=== PATIENT | male | born 2005 | race African-American/Black ===

== ENCOUNTER 2024-04-17 09:52 | Emergency (ER) | payer OTHER ==
[~2024-04-17] VITALS: Ht 188 cm; Wt 104.3 kg
== END 2024-04-17 11:50 | disposition home or self-care (01) ==
LOC: ER 09:52
DX: S83.005A Unspecified dislocation of left patella, initial encounter (principal); X58.XXXA Exposure to other specified factors, initial encounter
CPT/HCPCS: 73562-LT; 99283-25